=== PATIENT | male | born 1960 | race Caucasian/White ===

== ENCOUNTER 2020-01-06 06:15 | Day surgery (SDC) | payer MEDICAID ==
[~2020-01-06 06:15] MED LIST: Dextrose 5%-0.45% NaCl 1,000 ML IV SCH; Midazolam 1 MG/ML 2 ML SDV ONE; Sodium Chloride 0.9% 10 ML Syringe FLUSH PRN; fentaNYL 100 MCG/2 ML SDV ONE
== END 2020-01-06 08:47 | disposition home or self-care (01) ==
LOC: DL.ENDO 06:15
PROVIDERS: ATTEND Internal Medicine Gastroenterology
DX: Z12.11 Encounter for screening for malignant neoplasm of colon (principal); Z53.8 Procedure and treatment not carried out for other reasons
CPT/HCPCS: J7042

== ENCOUNTER 2020-07-31 15:07 | Emergency (ER) | payer MEDICAID ==
[2020-07-31] MEDS ORDERED: Sodium Chloride 0.9% 10 ML Syringe FLUSH PRN (15:25)
[2020-07-31 16:17] LABS: PTT,PARTIAL THROMBOPLSTIN TIME 24.2 SEC (22.0-34.0)
[2020-07-31 16:21] LABS: ANION GAP 9.5 mEq/L (7-13); CHLORIDE,CL 101 mmol/L (98-107); SODIUM,NA 137 mmol/L (136-145)
--- NOTE | 2020-07-31 16:21 | EDM.PDOC ---
ED HPI GENERAL MEDICAL PROBLEM - General Chief Complaint: General Stated Complaint: ALTRU Time Seen by Provider: 07/31/20 15:10 Source of Information: Reports: Patient History Limitations: Reports: No Limitations - History of Present Illness INITIAL COMMENTS - FREE TEXT/NARRATIVE: Patient comes emergency department today from the radiology department for further evaluation of a pulmonary embolism. This patient went to the primary care setting today for routine visit with Dr. Dominguez for the concerns of about a 30 pound weight loss in the last 6 months. He had no other symptoms or complaints that were acute. A CT chest abdomen pelvis with contrast was ordered to rule out malignancy. Radiology technicians noticed during the CT evaluation that the patient has a saddle pulmonary embolus. He was then sent to the emergency department for further evaluation. Upon arrival to the emergency department the patient is quite anxious and surprised and taken back with the concerns of him being sent in for routine testing and immediately brought to the emergency department and he does not understand why. He has no history or current chest pain shortness of breath or difficulty breathing. No syncope. No palpitations. No abdominal pain nausea or vomiting. No hematuria dysuria or urinary frequency. No black or tarry stools. He has no history of PEs DVTs or coagulable problems. He has been evaluated multiple times for the concerns of prostate cancer but his biopsies have been normal. He does not smoke. He has not had any long stents of travel. He has no pain in his calf. - Related Data Allergies Allergy/AdvReac Type Severity Reaction Status Date / Time No Known Allergies Allergy Verified 07/31/20 15:08 Home Meds: Home Meds Aspirin 81 mg PO DAILY 01/05/20 [History] Cetirizine HCl [Zyrtec] 10 mg PO DAILY 01/05/20 [History] Ranitidine HCl [Ranitidine] 150 mg PO BID 01/05/20 [History] Tamsulosin HCl 0.4 mg PO BEDTIME 01/05/20 [History] Past Medical History HEENT History: Reports: None Cardiovascular History: Reports: None Respiratory History: Reports: None Gastrointestinal History: Reports: None Genitourinary History: Reports: Other (See Below) Other Genitourinary History: urinary frequency Musculoskeletal History: Reports: None Neurological History: Reports: None Psychiatric History: Reports: None Endocrine/Metabolic History: Reports: None Hematologic History: Reports: None Immunologic History: Reports: None Oncologic (Cancer) History: Reports: None Dermatologic History: Reports: Urticaria - Infectious Disease History Infectious Disease History: Reports: None - Past Surgical History Head Surgeries/Procedures: Reports: None HEENT Surgical History: Reports: Cataract Surgery, Other (See Below) Other HEENT Surgeries/Procedures: dental extractions (wisdom teeth) Cardiovascular Surgical History: Reports: None Respiratory Surgical History: Reports: None GI Surgical History: Reports: None Musculoskeletal Surgical History: Reports: None Social & Family History - Family History Family Medical History: Noncontributory - Tobacco Use Smoking Status *Q: Current Every Day Smoker Years of Tobacco use: 48 Packs/Tins Daily: 0.5 - Caffeine Use Caffeine Use: Reports: Soda Caffeine Use Comment: 2 cans daily - Recreational Drug Use Recreational Drug Use: No ED ROS GENERAL - Review of Systems Review Of Systems: Comprehensive ROS is negative, except as noted in HPI. ED EXAM, GENERAL - Physical Exam Exam: See Below Exam Limited By: No Limitations General Appearance: Alert, WD/WN, Anxious, Thin Nose: Normal Inspection Throat/Mouth: Normal Inspection Head: Atraumatic Neck: Normal Inspection Respiratory/Chest: No Respiratory Distress, Lungs Clear, No Accessory Muscle Use Cardiovascular: Normal Peripheral Pulses, Regular Rate, Rhythm GI/Abdominal: Normal Bowel Sounds, Soft, Non-Tender (Male) Exam: Deferred Rectal (Males) Exam: Deferred Back Exam: Normal Inspection, Full Range of Motion Extremities: Normal Inspection, Normal Range of Motion, Non-Tender, Normal Capillary Refill Neurological: Alert, Oriented, CN II-XII Intact, Normal Cognition, Normal Gait, No Motor/Sensory Deficits Psychiatric: Normal Affect, Normal Mood Skin Exam: Warm, Dry, Intact, Normal Color, No Rash EKG INTERPRETATION EKG Date: 07/31/20 Time: 15:34 Rhythm: NSR Rate (Beats/Min): 75 [place]: Normal P-Wave: Present QRS: Normal ST-T: Normal QT: Normal Comparison: No Change Course - Vital Signs Last Recorded V/S: Last Vital Signs Temp 97.6 F 07/31/20 15:08 Pulse 90 07/31/20 15:08 Resp 16 07/31/20 15:08 BP 118/78 07/31/20 15:08 Pulse Ox 99 07/31/20 15:08 - Orders/Labs/Meds Orders: Active Orders 24 hr Category Date Time Status Peripheral IV Insertion Adult [OM.PC] Stat Oth 07/31/20 15:25 Ordered Labs: Laboratory Tests 07/31/20 07/31/20 07/31/20 Range/Units 15:51 15:51 15:51 WBC 8.9 (5.0-10.0) 10^3/uL RBC 3.96 L (4.6-6.2) 10^6/uL Hgb 15.2 (14.0-18.0) g/dL Hct 42.6 (40.0-54.0) % MCV 107.6 H (80-100) fL MCH 38.4 H (27.0-34.0) pg MCHC 35.7 H (33.0-35.0) g/dL Plt Count 172 (150-450) 10^3/uL Neut % (Auto) 58.1 (42.2-75.2) % Lymph % (Auto) 25.6 (20.5-50.1) % Hendricks % (Auto) 10.4 H (2-8) % Eos % (Auto) 5.5 H (1.0-3.0) % Baso % (Auto) 0.4 (0.0-1.0) % PT 9.8 (9.0-12.0) SEC INR 1.0 (0.9-1.2) APTT 24.2 (22.0-34.0) SEC Sodium 137 (136-145) mmol/L Potassium 4.5 (3.5-5.1) mmol/L Chloride 101 (98-107) mmol/L Carbon Dioxide 31 (21-32) mmol/L Anion Gap 9.5 (7-13) mEq/L BUN 10 (7-18) mg/dL Creatinine 0.85 (0.70-1.30) mg/dL Est Cr Clr Drug Dosing 83.88 mL/min Estimated GFR (MDRD) > 60 BUN/Creatinine Ratio 11.8 (No establ ref range) Glucose 95 (74-99) mg/dL Calcium 9.0 (8.5-10.1) mg/dL Total Bilirubin 0.7 (0.2-1.0) mg/dL AST 79 H (15-37) U/L ALT 90 H (16-63) U/L Alkaline Phosphatase 72 (46-116) U/L Troponin I < 0.017 (0.000-0.056) ng/mL Total Protein 7.4 (6.4-8.2) g/dL Albumin 3.6 (3.4-5.0) g/dL Globulin 3.8 Albumin/Globulin Ratio 0.9 Meds: Medications Discontinued Medications Generic Name Dose Route Start Last Admin Trade Name Freq PRN Reason Stop Dose Admin Sodium Chloride 10 ml 07/31/20 15:25 Saline Flush FLUSH ASDIRECTED PRN Keep Vein Open - Re-Assessments/Exams Free Text/Narrative Re-Assessment/Exam: I did review the CT chest abdomen pelvis with contrast and it is quite clear even to myself that he has a rather large pulmonary saddle embolus that extends down the inferior vena cava. There is no mention of RV strain on the CT scan report. His EKG is unremarkable. His laboratory evaluation is rather unremarkable with normal PT/INR. I discussed the with the patient the findings of the saddle pulmonary embolus which despite him being completely asymptomatic from this is still quite concerning as this can be lethal. I would like to transfer him to [facility] in [place] as [place] in [facility] do not have any beds. I talked to the hospitalist here in [place] and he agrees that the patient should be at a tertiary care center. I discussed this at length with the patient who became quite distraught and upset. He states that he does not have time for this right now. He has too many things going on in his life. He is very upset with the clinic for not telling him that he was going to be seen in the emergency department. I explained to him that he was sent for a routine testing and a critical finding in his CT scan brought him to the emergency department and he needs intervention for this prior to any catastrophic health issues. He states that he recently had a friend that he feels just fine and he does not want to be here. I explained to him that a pulmonary embolism with a saddle PE presentation is very lethal despite his lack of symptoms at this time. He needs to be evaluated with an echocardiogram and be anticoagulated. He refuses to be transferred at this time as he wants to go home and get some things taken care of. I explained to him at length that this is a very concerning and very possible life-threatening clot in his pulmonary artery. He does agree that he will go home get someone to take care of his cat and lock up his house. I would like to anticoagulate him prior to him going home. As I was waiting for the hospitalist to call me back from [facility] in [place] the patient signed out AMA stating that he will just go home get his things done and return. I once again discussed with him that I want to anticoagulate him but I want to do an appropriately for the [facility] will be going to. He denies this. I once again stressed to him the big concern of with a pulmonary embolism especially a saddle PE explained to him. He is understanding this. There is no confusion he is quite anxious and agitated. He signed out AMA and went home. Did state that he was going to return after he went home to take care of his affairs. Couple of hours later the patient still had not return to the emergency department. The nursing staff called and contacted this patient at home and discussed her concerns and would like him to return to the emergency department. He denies the time to be able to come to the emergency department he has too many things going on in his life right now and he is unable to return. Although this would not be standard of care for management with a pulmonary embolism I did offer to start him on Xarelto outpatient at least until he agrees for appropriate follow-up. He states he refuses to take any medication and he will follow-up with his primary care provider tomorrow. Discussed this case with Dr. Dominguez as well so that he can follow-up with him in the clinic tomorrow. Departure - Departure Time of Disposition: 16:20 Disposition: Against Medical Advice 07 Clinical Impression: Saddle pulmonary embolus Qualifiers: Chronicity: unspecified Acute cor pulmonale presence: unspecified Qualified Code(s): I26.92 - Saddle embolus of pulmonary artery without acute cor pulmonale - Discharge Information Referrals: Venice Ferro MD [Primary Care Provider] - Forms: ED Department Discharge Sepsis Event Note (ED) - Evaluation Sepsis Screening Result: No Definite Risk - My Orders Last 24 Hours: My Active Orders 07/31/20 15:25 Peripheral IV Insertion Adult [OM.PC] Stat - Assessment/Plan Last 24 Hours: My Active Orders 07/31/20 15:25 Peripheral IV Insertion Adult [OM.PC] Stat
== END 2020-07-31 16:27 | disposition left against medical advice (07) ==
LOC: DL.ED 15:07
DX: I26.92 Saddle embolus of pulmonary artery without acute cor pulmonale (principal); F17.210 Nicotine dependence, cigarettes, uncomplicated; Z79.82 Long term (current) use of aspirin; Z79.899 Other long term (current) drug therapy
CPT/HCPCS: 36415; 80053; 84484; 85025; 85610; 85730; 93005; 99283-25

== ENCOUNTER 2025-04-03 09:21 | Emergency (ER) | payer MEDICARE, MEDICAID ==
[2025-04-03] MEDS: Orphenadrine 60 MG/2 ML Inj IM ONE (11:22)
[2025-04-03] MEDS: Dexamethasone 4 MG/ML SDV IM ONE (11:22)
== END 2025-04-03 12:23 | disposition home or self-care (01) ==
LOC: DL.ED 09:21
DX: M62.838 Other muscle spasm (principal); F17.200 Nicotine dependence, unspecified, uncomplicated
CPT/HCPCS: 96372; 99283; J1100; J2360